=== PATIENT | female | born 1950 | race Caucasian/White ===

== ENCOUNTER 2017-10-16 10:11 | Emergency (ER) | payer OTHER, MEDICARE ==
[~2017-10-16] VITALS: Ht 170.2 cm; Wt 72.6 kg
[~2017-10-16 10:11] MED LIST: AMITRIPTYLINE50 MG PO; AVELOX400 MG PO; FLAG500 PO; FLUOXETINE HYDR40 MG PO; LEVOFLOXACIN500 MG PO; NORVASC 5MG TAB5 MG PO; PRAVASTATIN SOD40 M1 PO; PROBIOTIC FORMU1 CAP PO; SYNTHROID0.1 MG PO; TOPROL XL25 MG PO; TRAZODONE50 MG PO
--- NOTE | 2017-10-16 10:31 | ED GENERAL ADULT ---
History of Present Illness General Chief Complaint: General Adult Stated Complaint: WEAKNESS, HIGH BP Source: patient, family, old records Exam Limitations: no limitations Vital Signs & Intake/Output Vital Signs & Intake/Output Vital Signs Date Time Temp Pulse Resp B/P B/P Pulse O2 O2 Flow FiO2 Mean Ox Delivery Rate 10/16 1402 86 18 159/89 99 10/16 1133 Room Air Room Air 10/16 1133 160/92 10/16 1015 96.0 70 20 160/100 98 Room Air Allergies Coded Allergies: Penicillins (Severe, RASH 09/10/15) codeine (Intermediate, ITCHING 09/10/15) Reconcile Medications Amitriptyline Hydrochloride (Amitriptyline) 50 MG TAB 1 TAB PO DAILY DEPRESSION (Reported) Amlodipine (Norvasc 5MG Tab) 5 MG TAB 1 TAB PO DAILY BP (Reported) FLUOXETINE HCL (Fluoxetine Hydrochloride) 40 MG CAP 1 TAB PO DAILY DEPRESSION (Reported) Lactobacillus Acidophilus (Probiotic Formula Capsule) 1 CAP CAP 1 CAP PO 2200 PRN PROBIOTIC Levothyroxine Sodium (Synthroid) 0.1 MG TAB 0.1 MG PO DAILY AC THYROID ( Reported) Metoprolol Succinate (Toprol XL) [address] 1 TAB PO DAILY BP (Reported) Metronidazole (Flagyl) 500 MG TAB 500 MG PO Q8 LUNG INFECTION Moxifloxacin Hydrochloride (Avelox) 400 MG TAB 400 MG PO DAILY LUNG INFECTION Pravastatin Sodium 40 MG TAB 1 TAB PO DAILY CHOLESTEROL (Reported) TRAZODONE HCL (Trazodone HCl) 50 MG TAB 1 TAB PO DAILY DEPRESSION (Reported) Triage Note: PT TO ED C/O WEAKNESS AND HIGH BP SINCE THURSDAY. DENIES PAIN. C/O NAUSEA. DENIES V/D. BP 160/100 IN TRIAGE, PT APPEARS ANXIOUS. CALLED PCP AND WAS ADVISED TO COME TO ED. Triage Nurses Notes Reviewed? yes HPI: On Thursday patient just felt off. Patient cannot really explain what she meant by that. She then checked her blood pressure and it was elevated. Patient had not taken her medications yet so she took them at that time and her blood pressure did come down but not as low as normally runs. Yesterday she was feeling better however towards evening she began to feel nauseous. Patient also noticed that her blood pressure continued to run elevated. This morning she got up and she had a slight headache and again just feels off. Patient denies any blurry vision. There is no nausea or vomiting. Patient checked her blood pressure and the machine told her it was in the red range. Patient called her primary care physician and she was instructed to come to the emergency department for evaluation. Past History Travel History Traveled to [place] past 21 day No Medical History Any Pertinent Medical History? 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 No Review of Systems Review of Systems Constitutional: Reports: see HPI, weakness. EENTM: Reports: no symptoms. Respiratory: Reports: no symptoms. Cardiovascular: Reports: no symptoms. GI: Reports: see HPI, nausea. Genitourinary: Reports: no symptoms. Musculoskeletal: Reports: no symptoms. Skin: Reports: no symptoms. Neurological/Psychological: Reports: see HPI, headache. Hematologic/Endocrine: Reports: no symptoms. Immunologic/Allergic: Reports: no symptoms. All Other Systems: Reviewed and Negative Physical Exam Physical Exam General Appearance: well developed/nourished, alert, awake, anxious, moderate distress Head: atraumatic, normal appearance Eyes: Bilateral: PERRL, EOMI. Ears, Nose, Throat: normal pharynx, normal ENT inspection, hearing grossly normal Neck: normal inspection, supple, full range of motion Respiratory: normal breath sounds, chest non-tender, no respiratory distress, lungs clear Cardiovascular: regular rate/rhythm, normal peripheral pulses Gastrointestinal: normal bowel sounds, soft, non-tender, no organomegaly Back: normal inspection, normal range of motion Extremities: normal inspection, normal capillary refill, normal range of motion, no edema Neurologic/Psych: no motor/sensory deficits, awake, alert, oriented x 3, normal gait, normal mood/affect Skin: intact, normal color, warm/dry Lymphatic: no anterior cervical anthony Core Measures ACS in differential dx? Yes CVA/TIA Diagnosis: No Sepsis Present: No Sepsis Focused Exam Completed? No Progress Differential Diagnoses I considered the following diagnoses in my evaluation of the patient: [ICH, HTN URGENCY, ELECTROLYTE ABNORMALITY] Plan of Care: Orders Procedure Date/time Status Add-on Test (ER Only) 10/16 1416 Active Telemetry/Technical Sales Associate 10/16 1030 Active URINALYSIS 10/16 1030 Complete TROPONIN LEVEL 10/16 1030 Complete COMPREHENSIVE METABOLIC PANEL 10/16 1030 Complete CBC WITHOUT DIFFERENTIAL 10/16 1030 Complete EKG 10/16 1030 Active Laboratory Tests 10/16/17 1355: Urinalysis LIGHT H, Urine Color YEL, Urine Clarity CLDY H, Urine pH 7.0, Ur Specific [place] 1.015, Urine Protein TRACE H, Urine Ketones NEG, Urine Nitrite NEG, Urine Bilirubin NEG, Urine Urobilinogen 0.2, Ur Leukocyte Esterase MOD H, Ur Microscopic SEDIMENT EXAMINED, Urine RBC 1-3, Urine WBC 25-50 H, Ur Epithelial Cells FEW, Urine Bacteria MANY H, Urine Hemoglobin TRACE-INTACT, Urine Glucose NEG 10/16/17 1102: Anion Gap 12, Estimated GFR > 60, BUN/Creatinine Ratio 22.5, Glucose 105 H, Calcium 9.5, Total Bilirubin 1.1, AST 35, ALT 45, Alkaline Phosphatase 70, Troponin I < 0.01, Total Protein 7.7, Albumin 4.4, Globulin 3.3, Albumin/ Globulin Ratio 1.3, CBC w Diff NO MAN DIFF REQ, RBC 4.34, MCV 95.7, MCH 32.7 H, MCHC 34.1, RDW 14.3, MPV 8.1, Gran % 71.6, Lymphocytes % 15.1 L, Monocytes % 9.1, Eosinophils % 3.7, Basophils % 0.5, Absolute Granulocytes 5.3, Absolute Lymphocytes 1.1 L, Absolute Monocytes 0.7 H, Absolute Eosinophils 0.3, Absolute Basophils 0 Diagnostic Imaging: Viewed by Me: Radiology Read, CT Scan. Discussed w/RAD: Radiology Read, CT Scan. 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 MRI of the brain from 03/03/2014 TECHNIQUE: Contiguous axial imaging was performed from the skull base to vertex without intravenous administration of contrast. DLP: 614 mGy-cm FINDINGS: There is no evidence of acute intracranial hemorrhage or territorial infarction. No abnormal mass effect or midline shift is seen. Jason to white matter differentiation is well preserved. No extra-axial fluid collections are identified. There is mild generalized prominence of the ventricles, sulci, and extra-axial CSF spaces. There is mild scattered hypoattenuation in the bihemispheric white matter compatible with chronic microangiopathy. There is a stable chronic lacunar infarct involving the periventricular white matter adjacent to the frontal horn of the right lateral ventricle. There is a chronic lacunar infarct in the left thalamus anteriorly. No acute osseous abnormalities. There is opacification of the right frontal and some of the right anterior ethmoid air cells, which appears progressive from the priors. There is opacification of the partially visualized right maxillary sinus , new from the priors with progressive sclerosis and thickening of the kessler. There appears to been some volume loss in the right frontal air cell suggesting a degree of atelectasis. No acute soft tissue abnormality. IMPRESSION: No acute intracranial pathology. Mild chronic microangiopathy, volume loss, and scattered chronic lacunar infarcts. Partially visualized OMC pattern inflammatory disease within the right frontal, anterior ethmoid, and maxillary sinuses, new from the priors. CT sinus could further evaluate these findings. DICTATED BY: Myriam Romano MD DATE/TIME DICTATED:10/16/171158 TRUCK CRANE OPERATOR HELPER:FRANDY DATE/TIME TRANSCRIBED:10/16/171158 CONFIDENTIAL, DO NOT COPY WITHOUT APPROPRIATE AUTHORIZATION. 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 FINDINGS: Hyperinflated lungs compatible with underlying COPD. Linear scarring right upper lung noted again.. No acute airspace disease. Subsegmental atelectasis bilateral lung bases. Bony thorax is intact. IMPRESSION: Stable linear scarring right upper lung. Subsegmental atelectasis bilateral bases. DICTATED BY: Woody Braden MD DATE/TIME DICTATED:10/16/171135 TRUCK CRANE OPERATOR HELPER:FRANDY DATE/TIME TRANSCRIBED:10/16/171135 CONFIDENTIAL, DO NOT COPY WITHOUT APPROPRIATE AUTHORIZATION. <Electronically signed in Other Vendor System> SIGNED BY: Woody Braden MD 10/16/17 1148 Initial ED EKG: NSR, nonspecific ST T wave chg Prior EKG: unchanged Comments: states that the patient drinks every night. Patient now admits to drinking a few ounces every night to help her sleep. Her last drink was 3 days ago. Patient states that she has no problems when she stops drinking and hasn't gone months between drinks. I had a long conversation with the patient and her about alcohol. Patient states that sheneeds to stop drinking and she is confident that she can do it on her own. Patient has been offered counseling. Departure Departure Disposition: HOME OR SELF CARE Condition: Stable Clinical Impression Primary Impression: Hypertension Referrals: Lamar DOTY,Melina Luna (PCP/Family) Additional Instructions: Increase your metoprolol to 75 mg(take 1-1/2 pills) daily. Continue your other medications. You need to avoid all alcohol as this can increase the risk of high blood pressure as well as other medical problems. Return to the emergency department if he would like help to stop drinking. Return to the emergency department for any concerns. Departure Forms: Customer Survey General Discharge Information Critical Care Note Critical Care Note Critical Care Time: mins: (90 MIN)
[2017-10-16 11:07] LABS: ABSOLUTE BASOPHIL COUNT 0 /CUMM (0.0-0.2); ABSOLUTE EOSINOPHIL COUNT 0.3 /CUMM (0.0-0.7); ABSOLUTE GRANULOCYTE CT 5.3 /CUMM (1.4-6.5); ABSOLUTE LYMPH COUNT 1.1 /CUMM (1.2-3.4); ABSOLUTE MONOCYTE COUNT 0.7 /CUMM (0.10-0.60); BASOPHIL % 0.5 % (0.0-2.0); EOSINOPHIL % 3.7 % (0-5); GRANULOCYTE % 71.6 % (42.2-75.2); HEMATOCRIT 41.5 % (37-47); MEAN CORPUSCULAR HGB 32.7 PG (27.0-31.0); MEAN CORPUSCULAR HGB CONC 34.1 G/DL (33.0-37.0); MEAN CORPUSCULAR VOLUME 95.7 FL (81.0-99.0); MEAN PLATELET VOLUME 8.1 FL (7.4-10.4); PLATELET COUNT 310 /CUMM (130-400); RBC DISTRIBUTION WIDTH 14.3 % (11.5-14.5); RED BLOOD CELL CT 4.34 /CUMM (4.20-5.40); WHITE BLOOD CELL COUNT 7.4 /CUMM (4.8-10.8)
--- NOTE | 2017-10-16 11:43 | RADIOLOGY REPORT ---
EXAMINATION: XR PORTABLE CHEST CLINICAL INFORMATION: Chest pain COMPARISON: Multiple prior chest x-rays most recent prior dated 10/23/2016 TECHNIQUE: Portable frontal view of the chest was obtained. FINDINGS: Hyperinflated lungs compatible with underlying COPD. Linear scarring right upper lung noted again.. No acute airspace disease. Subsegmental atelectasis bilateral lung bases. Bony thorax is intact. IMPRESSION: Stable linear scarring right upper lung. Subsegmental atelectasis bilateral bases.
--- NOTE | 2017-10-16 12:07 | CT SCAN REPORT ---
EXAMINATION: CT HEAD WITHOUT CONTRAST CLINICAL INFORMATION: Headache, nausea, hypertension COMPARISON: Head CT from 12/06/2009. MRI of the brain from 03/03/2014 TECHNIQUE: Contiguous axial imaging was performed from the skull base to vertex without intravenous administration of contrast. DLP: 614 mGy-cm FINDINGS: There is no evidence of acute intracranial hemorrhage or territorial infarction. No abnormal mass effect or midline shift is seen. Jason to white matter differentiation is well preserved. No extra-axial fluid collections are identified. There is mild generalized prominence of the ventricles, sulci, and extra-axial CSF spaces. There is mild scattered hypoattenuation in the bihemispheric white matter compatible with chronic microangiopathy. There is a stable chronic lacunar infarct involving the periventricular white matter adjacent to the frontal horn of the right lateral ventricle. There is a chronic lacunar infarct in the left thalamus anteriorly. No acute osseous abnormalities. There is opacification of the right frontal and some of the right anterior ethmoid air cells, which appears progressive from the priors. There is opacification of the partially visualized right maxillary sinus, new from the priors with progressive sclerosis and thickening of the kessler. There appears to been some volume loss in the right frontal air cell suggesting a degree of atelectasis. No acute soft tissue abnormality. IMPRESSION: No acute intracranial pathology. Mild chronic microangiopathy, volume loss, and scattered chronic lacunar infarcts. Partially visualized OMC pattern inflammatory disease within the right frontal, anterior ethmoid, and maxillary sinuses, new from the priors. CT sinus could further evaluate these findings.
[2017-10-16 14:02] VITALS: BP 159/89
== END 2017-10-16 14:31 ==
LOC: ERH 10:11
PROVIDERS: Emergency Medicine
DX: I10 Essential (primary) hypertension (principal)
CPT/HCPCS: 71045; 81001; 87086; 93005; 93010

== ENCOUNTER 2017-11-08 16:39 | Emergency (ER) | payer OTHER, MEDICARE ==
[~2017-11-08] VITALS: Ht 170.2 cm; Wt 72.6 kg
[2017-11-08 17:03] LABS: ABSOLUTE BASOPHIL COUNT 0 /CUMM (0.0-0.2); ABSOLUTE EOSINOPHIL COUNT 0 /CUMM (0.0-0.7); ABSOLUTE GRANULOCYTE CT 6.6 /CUMM (1.4-6.5); ABSOLUTE LYMPH COUNT 1.5 /CUMM (1.2-3.4); ABSOLUTE MONOCYTE COUNT 0.9 /CUMM (0.10-0.60); BASOPHIL % 0.3 % (0.0-2.0); EOSINOPHIL % 0.3 % (0-5); GRANULOCYTE % 73.4 % (42.2-75.2); MEAN CORPUSCULAR HGB 31.4 PG (27.0-31.0); MEAN CORPUSCULAR HGB CONC 33.2 G/DL (33.0-37.0); MEAN CORPUSCULAR VOLUME 94.7 FL (81.0-99.0); MEAN PLATELET VOLUME 8.2 FL (7.4-10.4); PLATELET COUNT 368 /CUMM (130-400); RBC DISTRIBUTION WIDTH 14.3 % (11.5-14.5); RED BLOOD CELL CT 4.64 /CUMM (4.20-5.40)
--- NOTE | 2017-11-08 17:15 | ED GENERAL ADULT ---
History of Present Illness General Chief Complaint: General Adult Stated Complaint: HIGH BLOOD PRESSURE,LOSS OF APPETITE X2 DAYS Source: patient, family, old records Exam Limitations: no limitations Vital Signs & Intake/Output Vital Signs & Intake/Output Vital Signs Date Time Temp Pulse Resp B/P B/P Pulse O2 O2 Flow FiO2 Mean Ox Delivery Rate 11/08 1701 89 20 167/95 100 Room Air 11/08 1656 Room Air 11/08 1645 98.4 96 18 170/120 96 Room Air Allergies Coded Allergies: Penicillins (Severe, RASH 09/10/15) codeine (Intermediate, ITCHING 09/10/15) Reconcile Medications Amitriptyline HCl 50 MG TABLET 1 TAB PO QPM MENTAL HEALTH (Reported) Amlodipine Besylate 5 MG TABLET 1 TAB PO DAILY BP (Reported) Aspirin (Ecotrin*) 81 MG TABLET.DR 1 TAB PO DAILY HEART/BLOOD (Reported) Fluoxetine HCl 40 MG CAPSULE 2 CAP PO DAILY MENTAL HEALTH (Reported) Levothyroxine Sodium 125 MCG TABLET 1 TAB PO DAILY THYROID (Reported) Metoprolol Succinate 50 MG TAB.ER.24H 75 MG PO DAILY HEART/BP (Reported) Trazodone HCl (Unknown Strength) TABLET (Unknown Dose) UNKNOWN (Reported) Triage Note: PT STATES SHE HAS LOST HER APPETITE HAS NOT EATEN IN THE PAST FEW DAYS. PT STATES HER BP HAS BEEN HIGH FOR THE PAST FEW DAYS. PT SHAKING IN TRIAGE. DAUGHTER STATES SHE DOES SHAKE BUT THIS IS WORSE THAN NORMAL. Triage Nurses Notes Reviewed? yes HPI: 67F PMH HTN, anxiety, hypothyroidism presents with elevated BP. Patient has felt weak and shaky for the past 3 days consistently. She denies fever, chills, headache, sore throat, vision/hearing changes, chest pain, palpitations, SOB, abdominal pain, diarrhea, dysuria. Per her family, they have noticed for the past few years that her speech patterns have slowed, she has intermittent memory problems, and has become more clumsy. Currently she feels a bit weak but is otherwise well. BP was 170/120 on arrival but improved to 168/90 after a few minutes. Per patient she drinks several ounces of vodka every night to help her sleep. She has never had withdrawal symptoms. She never feels guilt about her drinking or drinks in the morning. Her family at bedside has told her several times that she drinks too much. Past History Travel History Traveled to [place] past 21 day No Medical History Any Pertinent Medical History? 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 No Review of Systems Review of Systems Constitutional: Reports: no symptoms. EENTM: Reports: no symptoms. Respiratory: Reports: no symptoms. Cardiovascular: Reports: no symptoms. GI: Reports: no symptoms. Genitourinary: Reports: no symptoms. Musculoskeletal: Reports: no symptoms. Skin: Reports: no symptoms. Neurological/Psychological: Reports: no symptoms. Hematologic/Endocrine: Reports: no symptoms. Immunologic/Allergic: Reports: no symptoms. All Other Systems: Reviewed and Negative Physical Exam Physical Exam General Appearance: well developed/nourished, mild distress Head: atraumatic, normal appearance Eyes: Bilateral: normal appearance, PERRL, EOMI. Ears, Nose, Throat: normal pharynx, normal ENT inspection, hearing grossly normal Neck: normal inspection, supple, full range of motion Respiratory: normal breath sounds, chest non-tender, no respiratory distress Cardiovascular: regular rate/rhythm Gastrointestinal: soft, non-tender Back: normal inspection, normal range of motion Extremities: normal inspection, normal range of motion Neurologic/Psych: awake, alert, oriented x 3, hand tremors and poor coordination , but symmetric, no weakness, sensation intact Core Measures ACS in differential dx? No CVA/TIA Diagnosis: No Sepsis Present: No Sepsis Focused Exam Completed? No Progress Differential Diagnoses I considered the following diagnoses in my evaluation of the patient: stroke, TIA, intracranial bleed, seizure, Parkinson's, meningitis, alcohol withdrawal, alcohol/drug toxicity, NMS, serotonin syndrome Plan of Care: Orders Procedure Date/time Status TROPONIN LEVEL 11/09 1647 Complete COMPREHENSIVE METABOLIC PANEL 11/08 164 Complete CBC WITHOUT DIFFERENTIAL 11/09 1647 Complete EKG 11/08 1648 Active Laboratory Tests 11/08/17 1655: Anion Gap 20 H, Estimated GFR > 60, BUN/Creatinine Ratio 21.3, Glucose 114 H, Calcium 9.9, Total Bilirubin 1.3, AST 47 H, ALT 42, Alkaline Phosphatase 79, Troponin I < 0.01, Total Protein 8.6 H, Albumin 5.0, Globulin 3.6, Albumin/ Globulin Ratio 1.4, CBC w Diff NO MAN DIFF REQ, RBC 4.64, MCV 94.7, MCH 31.4 H, MCHC 33.2, RDW 14.3, MPV 8.2, Gran % 73.4, Lymphocytes % 16.1 L, Monocytes % 9.9 H, Eosinophils % 0.3, Basophils % 0.3, Absolute Granulocytes 6.6 H, Absolute Lymphocytes 1.5, Absolute Monocytes 0.9 H, Absolute Eosinophils 0, Absolute Basophils 0 Suspect an underlying chronic neurological condition such as Parkinson's. Low suspicion for alcohol withdrawal at this time. No evidence of CVA/TIA as this is a long standing process. Diagnostic Imaging: Viewed by Me: CT Scan. Discussed w/RAD: CT Scan. Radiology Impression: PATIENT: FEDERICO GIRON PRESENT AGE: 67 PATIENT ACCOUNT NO: [id number] : 49 LOCATION: [facility] ORDERING PHYSICIAN: Stephani Villarreal MD SERVICE DATE: 11/08/17 EXAM TYPE : CAT - CT HEAD WO IV CONTRAST EXAMINATION: CT HEAD WITHOUT CONTRAST CLINICAL INFORMATION: Tremor. Slurred speech for several days. COMPARISON: 10/16/2017. TECHNIQUE: Contiguous axial imaging was performed from the skull base to vertex without intravenous administration of contrast. DLP: 616 mGy-cm FINDINGS: Brain parenchyma: No acute findings. Elliott-white matter differentiation is well preserved. No evidence of an acute major vascular territory infarction, hemorrhage, mass or midline shift. Again noted is mild, scattered hypoattenuation within white matter of each cerebral hemisphere, compatible with chronic mild microangiopathy. 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 Also, there is an old lacunar infarct in the periventricular white matter adjacent to the right frontal horn. Cerebrospinal fluid spaces: The mild atrophy of cerebral hemispheres is associated with commensurate prominence of ventricles and sulci. No hydrocephalus or extra-axial fluid collections. Cerebellum and brainstem: Unremarkable. The 4th ventricle is midline in position. The cerebellopontine angles are normal. Calvarium and temporomandibular joints: Calvarium is intact. Mastoid air cells and middle ear cavities are well aerated. The TMJs are normal. Paranasal sinuses and orbits: Again noted is mucoperiosteal thickening of the visualized right frontal sinus, anterior right ethmoid air cells and right maxillary sinus. Lenses have been extracted from each globe. Other: No acute findings in the visualized extracranial soft tissues. IMPRESSION: 1. No acute intracranial pathology compared to 10/16/2017. 2. Findings consistent with chronic, mild small vessel ischemic changes of the supratentorial white matter and mild cerebral atrophy. 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 3. Chronic inflammation affecting the visualized right frontal, anterior ethmoid and maxillary sinuses. DICTATED BY: Waylon Lopes MD DATE/TIME DICTATED:11/08/171743 RUBBER BOOTS AND SHOES REPAIRER:FRANDY DATE/TIME TRANSCRIBED:11/08/171743 CONFIDENTIAL, DO NOT COPY WITHOUT APPROPRIATE AUTHORIZATION. <Electronically signed in Other Vendor System> SIGNED BY: Waylon Lopes MD 11/08/17 7304 Initial ED EKG: normal sinus rhythm, no ST T wave changes Departure Departure Disposition: HOME OR SELF CARE Condition: Stable Clinical Impression Primary Impression: Uncontrolled hypertension Referrals: Raul Hinds MD, MD, Shyla D. (PCP/Family) Additional Instructions: Follow up with the neurologist that has been referred. Follow up with your PCP for your high blood pressure. Please cut down on your alcohol intake. If you have any new or worsening symptoms, return to ER. Departure Forms: Customer Survey General Discharge Information Critical Care Note Critical Care Note Critical Care Time: non-applicable Primary Impression: Uncontrolled hypertension Referrals: Melina Newton MD (PCP/Family) Additional Instructions: Follow up with the neurologist that has been referred. Follow up with your PCP for your high blood pressure. Please cut down on your alcohol intake. If you have any new or worsening symptoms, return to ER. Departure Forms: Customer Survey General Discharge Information
--- NOTE | 2017-11-08 17:53 | CT SCAN REPORT ---
EXAMINATION: CT HEAD WITHOUT CONTRAST CLINICAL INFORMATION: Tremor. Slurred speech for several days. COMPARISON: 10/16/2017. TECHNIQUE: Contiguous axial imaging was performed from the skull base to vertex without intravenous administration of contrast. DLP: 616 mGy-cm FINDINGS: Brain parenchyma: No acute findings. Elliott-white matter differentiation is well preserved. No evidence of an acute major vascular territory infarction, hemorrhage, mass or midline shift. Again noted is mild, scattered hypoattenuation within white matter of each cerebral hemisphere, compatible with chronic mild microangiopathy. 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 Also, there is an old lacunar infarct in the periventricular white matter adjacent to the right frontal horn. Cerebrospinal fluid spaces: The mild atrophy of cerebral hemispheres is associated with commensurate prominence of ventricles and sulci. No hydrocephalus or extra-axial fluid collections. Cerebellum and brainstem: Unremarkable. The 4th ventricle is midline in position. The cerebellopontine angles are normal. Calvarium and temporomandibular joints: Calvarium is intact. Mastoid air cells and middle ear cavities are well aerated. The TMJs are normal. Paranasal sinuses and orbits: Again noted is mucoperiosteal thickening of the visualized right frontal sinus, anterior right ethmoid air cells and right maxillary sinus. Lenses have been extracted from each globe. Other: No acute findings in the visualized extracranial soft tissues. IMPRESSION: 1. No acute intracranial pathology compared to 10/16/2017. 2. Findings consistent with chronic, mild small vessel ischemic changes of the supratentorial white matter and mild cerebral atrophy. 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 3. Chronic inflammation affecting the visualized right frontal, anterior ethmoid and maxillary sinuses.
[2017-11-08] MEDS ORDERED: METOPROLOL SUCC50 M2 PO (18:09)
[2017-11-08] MEDS ORDERED: AMLODIPINE BESYL5 M1 PO (18:09)
[2017-11-08] MEDS ORDERED: LEVOTHYROXINE125 MCG PO (18:09)
[2017-11-08] MEDS ORDERED: AMITRIPTYLINE H50 M2 PO (18:09)
[2017-11-08] MEDS ORDERED: TRAZODONE HCL100 M1 (18:10)
[2017-11-08] MEDS ORDERED: ASPIRIN EC81 M1 PO (18:10)
[2017-11-08] MEDS ORDERED: FLUOXETINE HCL40 M1 PO (18:10)
[2017-11-08 18:20] VITALS: BP 147/88
== END 2017-11-08 18:29 ==
LOC: ERH 16:39
PROVIDERS: Internal Medicine
DX: I10 Essential (primary) hypertension (principal); Z87.891 Personal history of nicotine dependence; R53.1 Weakness; E03.9 Hypothyroidism, unspecified
CPT/HCPCS: 93005; 93010